=== PATIENT | female | born 1965 | race Caucasian/White ===

== ENCOUNTER 2016-12-31 20:26 | Emergency (ER) | payer BC ==
[2016-12-31 20:48] VITALS: TEMP 98.4; BMI 28.0
[2016-12-31] MEDS ORDERED: NS 1,000 ML IV ONE (21:04)
[2016-12-31] MEDS ORDERED: ONDANSETRON HCL 4 MG/2 ML VIAL IV ONE (21:04)
[2016-12-31] MEDS ORDERED: MORPHINE 4 MG/ML INJECTION IV ONE (21:04)
--- NOTE | 2016-12-31 22:04 | DIRPT ---
CLINICAL DATA: Stood up quickly resulting in syncopal episode, fell down in living room. EXAM: RIGHT ANKLE - COMPLETE 3+ VIEW COMPARISON: None available for comparison at time of study interpretation. FINDINGS: No fracture deformity nor dislocation. The ankle mortise appears congruent and the tibiofibular syndesmosis intact. Moderate plantar calcaneal spur. No destructive bony lesions. Soft tissue planes are non-suspicious. IMPRESSION: Negative. Electronically Signed By: Sawyer Braxton M.D. On: 12/31/2016 22:02
[2016-12-31 22:05] LABS: CA OXALATE 1+; LEUKOCYTES/URINE NEG (NEGATIVE); NITRITE/URINE NEG (NEGATIVE); RBC/URINE 0-2 (0-5); URINE OCCULT BLOOD NEG (NEG/TRACE)
[2016-12-31 22:10] LABS: AUTOMATED BASOPHIL 0.7 % (0-2); AUTOMATED EOSINOPHIL 1.5 % (0-5); AUTOMATED LYMPH 50.4 % (17-44); AUTOMATED MONOCYTE 6.7 % (3-10); AUTOMATED NEUTROPHIL 40.7 % (45-76); MPV 8.8 fL (7.4-10.4)
--- NOTE | 2016-12-31 22:10 | DIRPT ---
CLINICAL DATA: Stood up quickly resulting in syncopal episode, fell down in living room. EXAM: BILATERAL RIBS AND CHEST - 4+ VIEW COMPARISON: None. FINDINGS: No fracture or other bone lesions are seen involving the ribs. There is no evidence of pneumothorax or pleural effusion. Strandy densities LEFT lung base. Heart size and mediastinal contours are within normal limits. Surgical clips in the included right abdomen compatible with cholecystectomy. IMPRESSION: LEFT lung base atelectasis/scarring. No rib fracture deformity. Electronically Signed By: Sawyer Braxton M.D. On: 12/31/2016 22:07
[2016-12-31 22:19] LABS: BLOOD UREA NITROGEN 22 MG/DL (7-17); CALC CORRECTED 9.6 MG/DL (8.4-10.2); CALCIUM 9.5 MG/DL (8.4-10.2); CALCULATED OSMOLALITY 275 MOs/Kg (270-290); CHLORIDE 109 mEq/L (98-107); GLUCOSE 74 mg/dL (70-99); SODIUM LEVEL 142 mEq/L (137-146); TOTAL PROTEIN 7.1 G/DL (6.3-8.2)
--- NOTE | 2016-12-31 22:26 | EDPRACDOC ---
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 LATER SHE GOT UP FROM THE COUCH AND BECAME DIZZY AND HAD A SYNCOPAL EPISODE. STATES SHE IS HAVING PAIN IN HER CHEST FROM THE FALL AND IN HER RIGHT ANKLE IS PAINFUL Symptoms Started: Reports: With light exertion Symptoms: Reports: Syncope Symptom Severity: Reports: Does not affect activitiy Relevant History of: Denies: O, Anemia, CVA, DM, Electrolyte disorder, GI Bleed , SD, TIA Associated signs and symptoms:: Reports: Nausea <Cindy Varghese W - Last Filed: 01/01/17 01:05> - General Information Chief Complaint: Generalized Weakness Stated Complaint: PASSED OUT CP INJURED RT ANKLE PALE Time Seen by Provider: 12/31/16 20:50 Home Medications: Home Medications Calcium 3 tab PO DAILY 10/14/15 Cholecalciferol (Vitamin D3) [Vitamin D] 50,000 units PO .WEEKLY ON MO 10/14/15 Divalproex Sodium [Depakote] 250 tab PO BID 10/14/15 Hydrocodone/Acetaminophen [Hydrocodon-Acetaminoph 7.5-325] 2 tab PO Q6H PRN Levothyroxine Sodium [Synthroid] 175 mcg PO DAILY 10/14/15 Venlafaxine HCl [Effexor] 75 mg PO DAILY 10/14/15 CYANOCOBALAMIN (Vitamin B-12) [Vitamin B-12] 1,000 mcg IM .MONTHLY ON THE Hydrochlorothiazide 25 mg PO DAILY 12/05/15 Promethazine [Phenergan] 25 mg PO Q8H PRN 12/27/15 Quetiapine Fumarate [Seroquel] 200 mg PO HS 12/27/15 Cyclobenzaprine HCl [Flexeril] 10 mg PO BID 04/14/16 Acyclovir 400 mg PO DAILY 05/15/16 Melatonin 20 mg PO HS 05/15/16 Multivitamin [Multiple Vitamins] 1 each PO DAILY 05/15/16 Pantoprazole Sodium [Protonix] 40 mg PO DAILY 05/15/16 Sucralfate [Carafate] 1 gm PO DAILY 05/15/16 Topiramate [Topamax] 50 mg PO QID 05/15/16 Ibuprofen 800 mg PO TID PRN #30 tablet 05/16/16 Diazepam [Valium] 5 mg PO Q6 #7 tablet 10/30/16 Oxycodone Immediate Release [Oxycodone Immediate Release (OxyIR)] 5 - 10 mg PO Q4H PRN #7 tab 10/30/16 Allergies/Adverse Reactions: Allergies Allergy/AdvReac Type Severity Reaction Status Date / Time codeine Allergy Rash-Genera Verified 12/31/16 20:47 lized Penicillins Allergy Rash-Genera Verified 12/31/16 20:47 lized Zortxho-Sgt-Jme Reductase Allergy Rash-Genera Verified 12/31/16 20:47 Inhibitor lized sumatriptan [From Imitrex] Allergy Angioedema* Verified 12/31/16 20:47 sumatriptan succinate Allergy Angioedema* Verified 12/31/16 20:47 [From Imitrex] ED Past Medical History - History Reviewed Yes Nurses notes reviewed and agree except as marked - Patient Medical History Neurological History: Reports: Migraine GI/ History: Reports: Kidney Stones, Gastroesophageal Reflux Psychological History: Reports: Depression Additional Past Medical History: CHRONIC PAIN (MIGRAINE) PAIN CLINIC IN [place] Surgical History: Reports: Cholecystectomy, Tonsillectomy/Adnoidectomy, Other ( 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) - Social Medical History Smoking Status: Heavy tobacco smoker (5 or more cigarettes/day or daily pipe/ cigar) <Cindy Varghese - Last Filed: 01/01/17 01:05> EDM Review of Systems - Review of Systems ROS Negative Except as Marked: Yes All systems reviewed and were negative except as marked <Cindy Varghese - Last Filed: 01/01/17 01:05> - Physical Exam Last recorded Vital Signs: Last Vital Signs Temp 98.4 F 12/31/16 20:44 Pulse 72 12/31/16 22:29 Resp 18 12/31/16 22:29 BP 98/57 L 12/31/16 22:29 Pulse Ox 96 12/31/16 22:29 Oxygen Pulse Oxygen Saturation 96 O2 Device Room Air Oxygen Flow Rate Fraction of Inspired Oxygen ( FIO2) <Krissy Sales - Last Filed: 12/31/16 22:59> - Physical Exam Constitutional: Alert Oriented to: Time, Person, Place Last recorded Vital Signs: Last Vital Signs Temp 98.4 F 12/31/16 20:44 Pulse 76 12/31/16 21:50 Resp 18 12/31/16 21:50 BP 110/62 12/31/16 21:50 Pulse Ox 94 12/31/16 21:50 Oxygen Pulse Oxygen Saturation 94 O2 Device Room Air Oxygen Flow Rate Fraction of Inspired Oxygen ( FIO2) - HEENT Head: Normal ( normocephalic) Eye Exam: Normal (PERRL, EOMI, Sclera white) Oropharynx: Normal (Pharynx:Moist without exudate,Gums-no swelling) Tympanic Membrane: Normal Nose: No Symptoms Reported (septum midline) Neck: Normal (FROM, trachea at midline) - Respiratory/Cardiovascular Respiratory: Normal - CTA (BBS clear to auscultation without adventitious sounds ) Cardiovascular: Normal (RRR without murmur, gallop or rub) - GI Auscultation: Normal (NABS) Palpation: Normal (Soft,No rebound or guarding, non distended) Tenderness: Non tender Benntet's Sign: Negative Rectal Exam: Deferred - Musculoskeletal Back: Normal (Non-Tender) Extremities: Normal (Normal tone, Pulses 2+ No cyanosis or edema, FROM), Pedal Pulse (2+), Other (PAIN WITH PALAPTION TO RIGHT ANKLE) - Integumentary Skin: Normal, Warm, Dry Lymphatics: Normal (no adenopathy) - Neurologic Memory Impaired: Normal Motor Function: Normal (Normal tone, Pulses 2+ No cyanosis or edema, FROM) Cranial Nerve: Normal (CN II-X11 intact sensation, strength 5/5) Cerebellar: Normal Mood Description: Normal Perception: Normal <Cindy Varghese - Last Filed: 01/01/17 01:05> NIH Stroke Scale Initial Evaluation Level of Consciousness: Alert LOC- Question: Answers Both Correctly LOC Commands: Both Task Correctly Visual: No Visual Loss Facial Palsy: Normal Movement Motor Arm LEFT: No Drift Motor Arm RIGHT: No Drift Motor Leg LEFT: No Drift Motor Leg RIGHT: No Drift Limb Ataxia: Absent Sensory: Normal Best Language: No Aphasia Dysarthria: Normal Extinction and Inattention: No Abnormality (Neglect) <Cindy Varghese W - Last Filed: 01/01/17 01:05> - Neurologic Orientation: Time, Person, Place Speech: Fluent, Clear Coginitive: Normal, Follows Commands Affect: Normal, Calm Thought: Coherent Perception: Normal <Cindy Varghese W - Last Filed: 01/01/17 01:05> - Re-evaluation Re-evaluation 2 Re-evaluation Time: 23:00 (SYNCOPAL EPISODE AFTER STANDING UP ABRUPTLY AND WALKING. HAS HAD THIS HAPPEN IN THE PAST. THIS OCCURRED AFTER TAKING FLEXERIL AND SEROQUEL TOGETHER. BUT SHE DOES TAKE THESE MEDICINES ROUTINELY. HAS HAD PRIOR ECHOCARDIOGRAM WHICH WAS NORMAL.) INITIAL EKG DONE AT 2043 DEMONSTRATES QRS 138 MILLISECONDS CORRECTED QT IS 467. SECOND EKG DONE AT 10:52 P.M. DEMONSTRATES QRS 88 MILLISECONDS, CORRECTED QT 438 MILLISECONDS. THERE APPEARS TO BE A SODIUM CHANNEL/LEFT TRUE CONDUCTION POISONING SECONDARY TO MEDICATIONS. THIS APPEARS TO RESOLVED AT THIS TIME. I HAVE COUNSELED THE PATIENT TO DISCONTINUE FLEXERIL. CURRENTLY HAVING PHARMACY TO REVIEW MEDICINE LIST TO LOOK FOR OTHER CARDIAC POISONING MEDICATIONS. - Results 12/31/16 21:45 12/31/16 21:45 WBC 9.6 xk/uL (3.8-10.8) 12/31/16 21:45 RBC 3.77 xM/uL (4.20-5.40) L 12/31/16 21:45 Hgb 11.6 g/dL (12.0-16.0) L 12/31/16 21:45 Hct 34.5 % (36-47) L 12/31/16 21:45 MCV 92 fL (81-99) 12/31/16 21:45 MCH 30.8 pg (27-32) 12/31/16 21:45 MCHC 33.7 g/dl (33-36) 12/31/16 21:45 RDW 13.5 % (11.5-14.5) 12/31/16 21:45 Plt Count 257 xk/uL (130-400) 12/31/16 21:45 MPV 8.8 fL (7.4-10.4) 12/31/16 21:45 Neut % (Auto) 40.7 % (45-76) L 12/31/16 21:45 Lymph % (Auto) 50.4 % (17-44) H 12/31/16 21:45 [place] % (Auto) 6.7 % (3-10) 12/31/16 21:45 Eos % (Auto) 1.5 % (0-5) 12/31/16 21:45 Baso % (Auto) 0.7 % (0-2) 12/31/16 21:45 Absolute Neuts (auto) 3.84 xk/uL (1.7-8.2) 12/31/16 21:45 Absolute Lymphs (auto) 4.80 xk/uL (0.65-4.75) H 12/31/16 21:45 Sodium 142 mEq/L (137-146) 12/31/16 21:45 Potassium 3.6 mEq/L (3.5-5.1) 12/31/16 21:45 Chloride 109 mEq/L (98-107) H 12/31/16 21:45 Carbon Dioxide 22 mMOL/L (22-33) 12/31/16 21:45 Anion Gap 15 mEq/L (8-16) 12/31/16 21:45 BUN 22 MG/DL (7-17) H 12/31/16 21:45 Creatinine 1.10 MG/DL (0.52-1.04) H 12/31/16 21:45 Estimated GFR (MDRD) 53 mL/min (>=60) L 12/31/16 21:45 Glucose 74 mg/dL (70-99) 12/31/16 21:45 Calculated Osmolality 275 MOs/Kg (270-290) 12/31/16 21:45 Calcium 9.5 MG/DL (8.4-10.2) 12/31/16 21:45 Corrected Calcium 9.6 MG/DL (8.4-10.2) 12/31/16 21:45 Total Bilirubin 0.2 MG/DL (0.2-1.3) 12/31/16 21:45 AST 18 IU/L (14-36) 12/31/16 21:45 ALT 28 IU/L (9-52) 12/31/16 21:45 Alkaline Phosphatase 76 IU/L (38-126) 12/31/16 21:45 Total Protein 7.1 G/DL (6.3-8.2) 12/31/16 21:45 Albumin 3.9 G/DL (3.5-5.0) 12/31/16 21:45 Urine Color Yellow 12/31/16 21:25 Urine Clarity Clear 12/31/16 21:25 Urine pH 5.0 (5.0-8.0) 12/31/16 21:25 Ur Specific [place] 1.030 (1.003-1.035) 12/31/16 21:25 Urine Protein 1+ (NEG/TRACE) H 12/31/16 21:25 Urine Glucose (UA) Neg (NEGATIVE) 12/31/16 21:25 Urine Ketones Neg (NEGATIVE) 12/31/16 21:25 Urine Occult Blood Neg (NEG/TRACE) 12/31/16 21:25 Urine Nitrite Neg (NEGATIVE) 12/31/16 21:25 Urine Bilirubin Neg (NEGATIVE) 12/31/16 21:25 Urine Urobilinogen <2.0 MG/DL (0-1) 12/31/16 21:25 Ur Leukocyte Esterase Neg (NEGATIVE) 12/31/16 21:25 Urine RBC 0-2 (0-5) 12/31/16 21:25 Urine WBC 2-5 (0-5) 12/31/16 21:25 Ur Epithelial Cells Occ 12/31/16 21:25 Calcium Oxalate Crystal 1+ 12/31/16 21:25 Urine Bacteria Few (NEG/FEW) 12/31/16 21:25 Hyaline Casts 2-5 (0-2) H 12/31/16 21:25 Urine Mucus Occ (NEG/OCC) 12/31/16 21:25 Lab Results 12/31/16 12/31/16 12/31/16 21:45 21:45 21:25 WBC 9.6 RBC 3.77 L Hgb 11.6 L Hct 34.5 L MCV 92 MCH 30.8 MCHC 33.7 RDW 13.5 Plt Count 257 MPV 8.8 Neut % (Auto) 40.7 L Lymph % (Auto) 50.4 H [place] % (Auto) 6.7 Eos % (Auto) 1.5 Baso % (Auto) 0.7 Absolute Neuts (auto) 3.84 Absolute Lymphs (auto) 4.80 H Sodium 142 Potassium 3.6 Chloride 109 H Carbon Dioxide 22 Anion Gap 15 BUN 22 H Creatinine 1.10 H Estimated GFR (MDRD) 53 L Glucose 74 Calculated Osmolality 275 Calcium 9.5 Corrected Calcium 9.6 Total Bilirubin 0.2 AST 18 ALT 28 Alkaline Phosphatase 76 Total Protein 7.1 Albumin 3.9 Urine Color Yellow Urine Clarity Clear Urine pH 5.0 Ur Specific [place] 1.030 Urine Protein 1+ H Urine Glucose (UA) Neg Urine Ketones Neg Urine Occult Blood Neg Urine Nitrite Neg Urine Bilirubin Neg Urine Urobilinogen <2.0 Ur Leukocyte Esterase Neg Urine RBC 0-2 Urine WBC 2-5 Ur Epithelial Cells Occ Calcium Oxalate Crystal 1+ Urine Bacteria Few Hyaline Casts 2-5 H Urine Mucus Occ - EKG EKG #1 Comments: QRS 138 MS EKG #2 EKG Time: 22:52 -: Yes EKG interpreted by me Rate: bpm: 75 [place]: Normal Rhythm: NSR Block: None Hypertrophy: None ST: Nonsp Comments: QRS 88MS <Krissy Sales - Last Filed: 12/31/16 22:59> - Differential Diagnosis Dehydration, Other - Re-evaluation Re-evaluation 1 Re-evaluation Time: 22:50 (DR SALES IN TO ASSESS THE PATIENT AND HE IS OK WITH DISCHARGE) Re-evaluation 3 Re-evaluation Time: 01:02 (VSS. NO ACUTE DISTRESS NOTED. SPOKE WITH DR NEWMAN ABOUT PT. OK TO DISCHARGE. ) - Results 12/31/16 21:45 12/31/16 21:45 WBC 9.6 xk/uL (3.8-10.8) 12/31/16 21:45 RBC 3.77 xM/uL (4.20-5.40) L 12/31/16 21:45 Hgb 11.6 g/dL (12.0-16.0) L 12/31/16 21:45 Hct 34.5 % (36-47) L 12/31/16 21:45 MCV 92 fL (81-99) 12/31/16 21:45 MCH 30.8 pg (27-32) 12/31/16 21:45 MCHC 33.7 g/dl (33-36) 12/31/16 21:45 RDW 13.5 % (11.5-14.5) 12/31/16 21:45 Plt Count 257 xk/uL (130-400) 12/31/16 21:45 MPV 8.8 fL (7.4-10.4) 12/31/16 21:45 Neut % (Auto) 40.7 % (45-76) L 12/31/16 21:45 Lymph % (Auto) 50.4 % (17-44) H 12/31/16 21:45 [place] % (Auto) 6.7 % (3-10) 12/31/16 21:45 Eos % (Auto) 1.5 % (0-5) 12/31/16 21:45 Baso % (Auto) 0.7 % (0-2) 12/31/16 21:45 Absolute Neuts (auto) 3.84 xk/uL (1.7-8.2) 12/31/16 21:45 Absolute Lymphs (auto) 4.80 xk/uL (0.65-4.75) H 12/31/16 21:45 Sodium 142 mEq/L (137-146) 12/31/16 21:45 Potassium 3.6 mEq/L (3.5-5.1) 12/31/16 21:45 Chloride 109 mEq/L (98-107) H 12/31/16 21:45 Carbon Dioxide 22 mMOL/L (22-33) 12/31/16 21:45 Anion Gap 15 mEq/L (8-16) 12/31/16 21:45 BUN 22 MG/DL (7-17) H 12/31/16 21:45 Creatinine 1.10 MG/DL (0.52-1.04) H 12/31/16 21:45 Estimated GFR (MDRD) 53 mL/min (>=60) L 12/31/16 21:45 Glucose 74 mg/dL (70-99) 12/31/16 21:45 Calculated Osmolality 275 MOs/Kg (270-290) 12/31/16 21:45 Calcium 9.5 MG/DL (8.4-10.2) 12/31/16 21:45 Corrected Calcium 9.6 MG/DL (8.4-10.2) 12/31/16 21:45 Total Bilirubin 0.2 MG/DL (0.2-1.3) 12/31/16 21:45 AST 18 IU/L (14-36) 12/31/16 21:45 ALT 28 IU/L (9-52) 12/31/16 21:45 Alkaline Phosphatase 76 IU/L (38-126) 12/31/16 21:45 Total Protein 7.1 G/DL (6.3-8.2) 12/31/16 21:45 Albumin 3.9 G/DL (3.5-5.0) 12/31/16 21:45 Urine Color Yellow 12/31/16 21:25 Urine Clarity Clear 12/31/16 21:25 Urine pH 5.0 (5.0-8.0) 12/31/16 21:25 Ur Specific [place] 1.030 (1.003-1.035) 12/31/16 21:25 Urine Protein 1+ (NEG/TRACE) H 12/31/16 21:25 Urine Glucose (UA) Neg (NEGATIVE) 12/31/16 21:25 Urine Ketones Neg (NEGATIVE) 12/31/16 21:25 Urine Occult Blood Neg (NEG/TRACE) 12/31/16 21:25 Urine Nitrite Neg (NEGATIVE) 12/31/16 21:25 Urine Bilirubin Neg (NEGATIVE) 12/31/16 21:25 Urine Urobilinogen <2.0 MG/DL (0-1) 12/31/16 21:25 Ur Leukocyte Esterase Neg (NEGATIVE) 12/31/16 21:25 Urine RBC 0-2 (0-5) 12/31/16 21:25 Urine WBC 2-5 (0-5) 12/31/16 21:25 Ur Epithelial Cells Occ 12/31/16 21:25 Calcium Oxalate Crystal 1+ 12/31/16 21:25 Urine Bacteria Few (NEG/FEW) 12/31/16 21:25 Hyaline Casts 2-5 (0-2) H 12/31/16 21:25 Urine Mucus Occ (NEG/OCC) 12/31/16 21:25 Lab Results 12/31/16 12/31/16 12/31/16 21:45 21:45 21:25 WBC 9.6 RBC 3.77 L Hgb 11.6 L Hct 34.5 L MCV 92 MCH 30.8 MCHC 33.7 RDW 13.5 Plt Count 257 MPV 8.8 Neut % (Auto) 40.7 L Lymph % (Auto) 50.4 H [place] % (Auto) 6.7 Eos % (Auto) 1.5 Baso % (Auto) 0.7 Absolute Neuts (auto) 3.84 Absolute Lymphs (auto) 4.80 H Sodium 142 Potassium 3.6 Chloride 109 H Carbon Dioxide 22 Anion Gap 15 BUN 22 H Creatinine 1.10 H Estimated GFR (MDRD) 53 L Glucose 74 Calculated Osmolality 275 Calcium 9.5 Corrected Calcium 9.6 Total Bilirubin 0.2 AST 18 ALT 28 Alkaline Phosphatase 76 Total Protein 7.1 Albumin 3.9 Urine Color Yellow Urine Clarity Clear Urine pH 5.0 Ur Specific [place] 1.030 Urine Protein 1+ H Urine Glucose (UA) Neg Urine Ketones Neg Urine Occult Blood Neg Urine Nitrite Neg Urine Bilirubin Neg Urine Urobilinogen <2.0 Ur Leukocyte Esterase Neg Urine RBC 0-2 Urine WBC 2-5 Ur Epithelial Cells Occ Calcium Oxalate Crystal 1+ Urine Bacteria Few Hyaline Casts 2-5 H Urine Mucus Occ - EKG EKG #1 EKG Time: 20:43 -: Yes EKG interpreted by de Rate: bpm: 88 [place]: Normal Rhythm: NSR Block: RBBB Hypertrophy: None ST: Normal EKG #3 EKG Time: 00:49 -: Yes EKG interpreted by de Rate: bpm: 68 [place]: RAD Rhythm: NSR Block: None Hypertrophy: None ST: Normal <Cindy Varghese W - Last Filed: 01/01/17 01:05> <Krissy Sales N - Last Filed: 12/31/16 22:59> Decision Time to Discharge: 01:03 - Departure Disposition: Home Education/Counseling Given To: Patient Education/Counseling Given Regarding: Diagnosis, Treatment, Prognosis, Follow Up <Cindy Varghese W - Last Filed: 01/01/17 01:05> - Departure Condition: Stable Final Diagnosis: Dysrhythmia, cardiac Syncope Qualifiers: Syncope type: vasovagal syncope Qualified Code(s): R55 - Syncope and collapse Instructions: Syncope (ED), Dysthymic Disorder (ED) Referrals: Toya Clemens NP [Primary Care Provider] - One Week Romeo Gomez MD [Staff Physician] - One Week Prescriptions: No Action Cholecalciferol (Vitamin D3) [Vitamin D] 50,000 units PO .WEEKLY ON MO Levothyroxine Sodium [Synthroid] 175 mcg PO DAILY Divalproex Sodium [Depakote] 250 tab PO BID Venlafaxine HCl [Effexor] 75 mg PO DAILY Hydrocodone/Acetaminophen [Hydrocodon-Acetaminoph 7.5-325] 2 tab PO Q6H PRN PRN Reason: Pain Calcium 3 tab PO DAILY CYANOCOBALAMIN (Vitamin B-12) [Vitamin B-12] 1,000 mcg IM .MONTHLY ON THE 1ST Hydrochlorothiazide 25 mg PO DAILY Quetiapine Fumarate [Seroquel] 200 mg PO HS Promethazine [Phenergan] 25 mg PO Q8H PRN PRN Reason: Nausea/Vomiting Cyclobenzaprine HCl [Flexeril] 10 mg PO BID Acyclovir 400 mg PO DAILY Multivitamin [Multiple Vitamins] 1 each PO DAILY Melatonin 20 mg PO HS Topiramate [Topamax] 50 mg PO QID Pantoprazole Sodium [Protonix] 40 mg PO DAILY Sucralfate [Carafate] 1 gm PO DAILY Ibuprofen 800 mg PO TID PRN #30 tablet PRN Reason: Pain Diazepam [Valium] 5 mg PO Q6 #7 tablet Oxycodone Immediate Release [Oxycodone Immediate Release (OxyIR)] 5 - 10 mg PO Q4H PRN #7 tab PRN Reason: Pain Additional Instructions: DO NOT TAKE FLEXERIL ANY MORE. AVOID FLEXERIL / SOMA / AMITRIPTYLINE (ANT TCA). BE VERY CAREFUL WITH ZOFRAN AND LEVAQUIN. ICE OR HEAT TO THE AFFECTED AREA. FOLLOW UP WITH PCP NEXT WEEK. RETURN TO THE ED FOR WORSENING SYMPTOMS OR CONCERNS
[2017-01-01] MEDS ORDERED: OXYCODONE HCL 5 MG TABLET PO ONE (01:14)
[2017-01-01 01:27] VITALS: BP 108/63; PULSE 65
== END 2017-01-01 01:27 | disposition home or self-care (01) ==
LOC: ED 20:26
DX: R55 Syncope and collapse (principal); I49.9 Cardiac arrhythmia, unspecified
CPT/HCPCS: 36415; 71111; 73610; 80053; 81001; 83880; 84484; 85025; 85730; 93005; 96361; 96374; 96375; 99284; J2270; J2405; J3490